=== PATIENT | male | born 1960 ===

== ENCOUNTER → 2024-08-27 08:14 | Outpatient (CLI) | payer OTHER, SELFPAY ==
[2024-08-27 08:57] LABS: Add Manual Diff / Slide Review NO; Hematocrit 48.7 % (41-53); Hemoglobin 16.1 g/dL (13.5-17.5); Lymphocytes Absolute Auto 1800 /uL (1100-4500); Mean Corpuscular HGB Conc 33.0 % (30-36); Mean Corpuscular Hemoglobin 28.3 PG (26-34); Mean Corpuscular Volume 85.8 fL (80-100); Platelet Count 153 X10^3/uL (150-400)
[2024-08-27 09:08] LABS: Hemoglobin A1C% w Est Avg Glu 12.6 % (4.0-6.0)
[2024-08-27 09:13] LABS: Alanine Aminotransferase 22 IU/L (<50); Albumin 4.2 g/dL (3.5-5.0); Albumin Globulin Ratio 1.2 (1.0-2.8); Alkaline Phosphatase 86 U/L (38-126); Blood Urea Nitrogen 16 mg/dL (9-20); Calcium 8.9 mg/dL (8.4-10.2); Carbon Dioxide 29 mmol/L (22-32); Chloride 98 mmol/L (98-107); Cholesterol 228 mg/dL (140-199); Estimated Glomerular Filt Rate > 60 mL/min (>60); Globulin 3.5 g/dL (1.7-4.1); Glucose 328 mg/dL (70-99); HDL Cholesterol 39 mg/dL (40-60); HEMOLYSIS < 15 (0-50); Potassium 4.5 mmol/L (3.4-5.1); Sodium 133 mmol/L (137-145); Total Protein 7.7 g/dL (6.3-8.2); Triglycerides 158 mg/dL (35-150)
== END ==
LOC: LAB 08:16
PROVIDERS: PCP Family Medicine; Referring Provider Family Medicine; Visit Provider Family Medicine
DX: E11.69 Type 2 diabetes mellitus with other specified complication (principal); E78.5 Hyperlipidemia, unspecified
CPT/HCPCS: 36415; 80053; 80061; 83036; 85025

== ENCOUNTER → 2024-11-23 08:46 | Outpatient (CLI) | payer OTHER, SELFPAY ==
--- NOTE | 2024-11-23 11:08 | DIAB.MNTFU ---
Follow-up Diabetes Medical Nutrition Therapy Assessment Name: Clifford Sauceda Date: 11/23/24 Time: 0-236e Dx: Type II Diabetes Provider: Tom Ed presents for Dm visit, accompanied by . Since last visit, started Ozempic. Has been increased with PCP to 1mg. Initial SE of diarrhea, weakness, and SOB reported x 3 days, but this has subsided. States his appetite has been reduced and intake during the day has lessened, however evening intake is high in CHO. Reports this may be more habit than hunger. Likes avocado lately with marciano. Has questions about whether this is ok to eat. Plans to go to [facility] for reunion. Wants to f/u in Dec. Diet recall: 8am: plum +/- egg and toast OR 2c oatmeal with PB milk and brown sugar 10a: plum or orange 4p: plum 6-7p: 3c goldberg's pie with potatoes OR 3-4c chicken soup with potatoes OR fish, 2c rice, veggies 8p: tea and crackers +/- 12-18 bagette with pb Reduced complication risk: Eyes: no Feet: yes Dental: no Anthropometrics: Ht: 6'2 Wt: 292# 10/2024 296# 08/2024 Weight history: Physical Activity: Not discussed today. Previous report: walking 1-2x per month with grandson. Has elliptical. Tried gym with daughter 2x but suffered cramps, likely r/t hyperglycemia. Self-Monitoring Blood Glucose: BG reduced with FBG now <200 but often >150mg/dl per report. None for review today. Reports 180-196mg/dl lately. Tried CGm sensor but did not like wearing it. [place] ache in the arm it was inserted in. 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 Diabetes Medications: 1000mg Metformin BID 1mg Semaglutide weekly Pertinent Labs: HgA1c; 12.6% 08/2024 Past Medical History: (Last Updated 10/07/24 @ 09:30 by Alexi Santos, DO) Diabetes Diabetic neuropathy Hyperlipidemia associated with type 2 diabetes mellitus Increased appetite Polyuria Postprandial abdominal bloating Nutrition Rx: Carbohydrates: Meal:45-60gSnack:15-30g Nutrition Diagnosis: - Excessive CHO intake r/t nutrition knowledge deficit aeb diet recall and new dx T2Dm- in progress - Self monitoring deficit r/t running out of strips and stage of change aeb pt report- improved - Physical inactivity r/t stage of change contemplative aeb pt report - not discussed today Intervention: This participant was very receptive. Provided appropriate educational handouts. Discussed the following topics: Meal/snack timing Portions at dinner and HS snack Impact of high CHo intake at night with FBG elevations Low CHO snacks and heart healthy fats/proteins GLP1 SE and action Created SMART goals for patient self-care and success. Goals: Limit exercise until BG lower <250mg/dl- not discussed Start GLP1- met Wear CGM- met Message RD for CGM rx start if interested- d/c Eat low CHO snacks if it has not been 3 hours since last eating occurrence- d/c Have 3pm snack with protein and/or healthy fat- new Keep half plate veggies at dinner- new Limit CHO to 1-1.5c at dinner- new Limit baguette to 6 for snack- new Follow-up: [facility] EUCEDA follow-up in Dec per pt req Cortney Parker RDN, [place] Certified Diabetes Care and Marine Water Tender P: [phone] Thank you for this referral
== END ==
LOC: DIET 08:47
PROVIDERS: PCP Family Medicine; Referring Provider Family Medicine
DX: E11.9 Type 2 diabetes mellitus without complications (principal); Z79.85 Long-term (current) use of injectable non-insulin antidiabetic drugs; Z79.84 Long term (current) use of oral hypoglycemic drugs; Z71.3 Dietary counseling and surveillance
CPT/HCPCS: 97803

== ENCOUNTER 2024-11-27 18:09 | Emergency (ER) | payer OTHER, SELFPAY ==
[2024-11-27 18:14] VITALS: BP 144/80; PULSE 94; RESP 15; TEMP 36.3; O2SAT 95; BMI 36.7
[2024-11-27] MEDS: ONDANSETRON 4 MG/2 ML INJ IV (18:31)
[2024-11-27 18:42] LABS: Add Manual Diff / Slide Review NO; Hematocrit 46.1 % (41-53); Hemoglobin 15.8 g/dL (13.5-17.5); Lymphocytes Absolute Auto 1000 /uL (1100-4500); Mean Corpuscular HGB Conc 34.2 % (30-36); Mean Corpuscular Hemoglobin 28.6 PG (26-34); Mean Corpuscular Volume 83.4 fL (80-100); Platelet Count 171 X10^3/uL (150-400)
[2024-11-27 18:46] LABS: Alanine Aminotransferase 27 IU/L (<50); Albumin 4.8 g/dL (3.5-5.0); Albumin Globulin Ratio 1.3 (1.0-2.8); Alkaline Phosphatase 82 U/L (38-126); Blood Urea Nitrogen 17 mg/dL (9-20); Calcium 9.3 mg/dL (8.4-10.2); Carbon Dioxide 22 mmol/L (22-32); Chloride 103 mmol/L (98-107); Estimated Glomerular Filt Rate > 60 mL/min (>60); Globulin 3.7 g/dL (1.7-4.1); Glucose 237 mg/dL (70-99); HEMOLYSIS < 15 (0-50); Lipase 119 U/L (23-300); Potassium 4.3 mmol/L (3.4-5.1); Sodium 136 mmol/L (137-145); Total Protein 8.5 g/dL (6.3-8.2)
--- NOTE | 2024-11-27 19:29 | DI.CT.S_ITS ---
PROCEDURE: CT ABDOMEN PELVIS WO CON INDICATIONS: flank pain with blood in urine TECHNIQUE: CT of the abdomen and pelvis was obtained without intravenous contrast. Coronal and sagittal reformats were performed. For radiation dose reduction, the following was used: automated exposure control, adjustment of mA and/or kV according to patient size. COMPARISON: None. FINDINGS: Image quality: Diagnostic. Lower Chest: No significant findings. ABDOMEN: Liver: No contour-deforming mass. Gallbladder: No radiopaque gallstones or wall thickening. Biliary ducts: No biliary dilation. Pancreas: No ductal dilation. Spleen: Size is within normal limits. Adrenal Glands: No adrenal nodules. Kidneys and Ureters: No right hydronephrosis or nephrolithiasis. Mild left proximal hydroureter secondary to a 5 mm partially obstructive calculus in the left mid ureter (Hounsfield units of 639) (2/). Mild bilateral nonspecific perinephric fat stranding. Stomach and Bowel: Normal colonic caliber, without significant wall thickening. Normal appendix. Peritoneum: No abnormal intraperitoneal fluid. No free air. Ventral Wall: No significant hernia. Abdominal Nodes: No retroperitoneal or mesenteric adenopathy by size criteria. Vessels: Aorta and inferior vena cava are normal in size. PELVIS: Pelvic Organs: Unremarkable. Bladder: Unremarkable. Pelvic Nodes: No enlarged lymph nodes. Miscellaneous: No inguinal hernias are seen. Bones: No aggressive osseous abnormality. Mild grade 1, stepwise retrolisthesis of L3 on L4 and L4 on L5. Moderate degenerated disc at L2-3. IMPRESSION: Left mid ureter partially obstructive 5 mm stone. Dictated by: Bryant Wynn M.D. on 11/27/2024 at 20:07 Approved by: Bryant Wynn M.D. on 11/27/2024 at 20:13
[2024-11-27] MEDS: KETOROLAC 30 MG/ML VIAL 15 MG IV (19:34)
[2024-11-27 21:29] VITALS: BP 116/65; PULSE 81; O2SAT 97
[2024-11-28 00:17] VITALS: BP 113/76; PULSE 73; RESP 16; O2SAT 95
--- NOTE | 2024-11-28 00:21 | ED.ABDPAIN ---
HPI - Abdominal Pain General Chief Complaint: Abdominal Pain Stated Complaint: Sharp Pain L Side Migrating Upward, Vomiting Time Seen by Provider: 11/28/24 00:09 Source: patient and family Mode of arrival: Ambulatory History of Present Illness HPI narrative: 64-year-old male without known history of prior kidney stones, history of diabetes, complains of left flank and left mid lower quadrant abdominal pain since 2:00 p.m. yesterday. Had nausea earlier, with nonbloody emesis. No diarrhea. No history of colitis or diverticulitis. No injuries, trauma, new activities. No painful or frequent urination. Related Data Previous Rx's ?Medication ?Instructions ?Recorded atorvastatin 40 mg tablet 40 mg PO BEDTIME #90 tabs 08/30/24 metformin 500 mg tablet 1,000 mg (2 x 500 mg) PO BID #360 08/30/24 tabs blood sugar diagnostic (Blood #50 ea 10/14/24 Glucose Test strips) lancets #200 ea 11/08/24 semaglutide 1 mg/dose (4 mg/3 mL) 1 mg (0.75 mL) SUBCUT QWEEK #3 mL 11/08/24 subcutaneous pen injector hydrocodone 5 mg-acetaminophen 325 1 tab PO Q6H PRN pain #14 tabs 11/28/24 mg tablet tamsulosin 0.4 mg capsule 0.4 mg PO DAILY #30 caps 11/28/24 Allergies Allergy/AdvReac Type Severity Reaction Status Date / Time No Known Drug Allergies Allergy Unverified 11/08/24 11:39 Patient History Medical History (Updated 11/28/24 @ 00:55 by Yuri Mock MD) Trigger finger of left hand Increased appetite Postprandial abdominal bloating Polyuria Diabetic neuropathy Hyperlipidemia associated with type 2 diabetes mellitus Diabetes Social History Smoking Status: Never smoker Smoking Status: Never smoker Exam Narrative Exam Narrative: GENERAL: Well-developed patient, in mild distress. HEAD: Atraumatic. Normocephalic. EYES: Pupils equal round and reactive. Extraocular motions intact. No scleral icterus. No injection or drainage. ENT: Nose without bleeding, purulent drainage. Throat without erythema, tonsillar hypertrophy or exudate. Airway patent. NECK: Trachea midline. Non tender CARDIOVASCULAR: Regular rate and rhythm without murmurs, gallops, or rubs. RESPIRATORY: Clear to auscultation. Breath sounds equal bilaterally. No wheezes, rales, or rhonchi. GASTROINTESTINAL: Abdomen soft, non-tender, nondistended. EXTREMITIES: No edema or joint tenderness. BACK: Nontender without deformity or crepitance. No flank tenderness. NEURO: AOx3. Motor functions grossly nonfocal. SKIN: No rash or erythema of visible areas Initial Vital Signs Initial Vital Signs: Vital Signs Temperature 97.4 F L 11/27/24 18:14 Pulse Rate 94 H 11/27/24 18:14 Respiratory Rate 15 11/27/24 18:14 Blood Pressure 144/80 H 11/27/24 18:14 Pulse Oximetry 95 11/27/24 18:14 Oxygen Delivery Method Room Air 11/27/24 18:14 Course Orders Ordered: Discontinued Medications Hydrocodone Bitart/Acetaminophen (Hydrocodone/Acet 5/325 Prepack) 1 bottle MISC DIRECTED ONE Stop: 11/28/24 00:39 Last Admin: 11/28/24 00:56 Dose: 1 bottle Documented By: AB Ketorolac Tromethamine (Ketorolac 30 Mg/Ml Vial) 15 mg IV NOW ONE Stop: 11/27/24 19:30 Last Admin: 11/27/24 19:34 Dose: 15 mg Documented By: GEORGETTE Ondansetron HCl (Ondansetron 4 Mg/2 Ml Inj) 4 mg IV NOW PRN PRN Reason: Nausea And Vomiting Last Admin: 11/27/24 18:31 Dose: 4 mg Documented By: ES Ondansetron HCl (Ondansetron 4 Mg Odt) 4 mg PO NOW PRN PRN Reason: Nausea And Vomiting Ondansetron HCl (Ondansetron 4 Mg Odt Prepack) 1 bottle MISC DIRECTED ONE Stop: 11/28/24 00:39 Last Admin: 11/28/24 00:56 Dose: 1 bottle Documented By: AB Vital Signs Vital signs: Vital Signs - 8 hr 11/28/24 00:17 11/28/24 00:17 Pulse Rate 73 Respiratory Rate 16 Blood Pressure 113/76 Pulse Oximetry 95 MDM - Abdominal Pain Lab Data Attestation: I reviewed the patient's lab results. Lab results narrative: White blood cell count 8800, hemoglobin 15.8, platelets adequate. Glucose 237. Renal function, serum CO2, potassium normal. Sodium 136 slight low. Liver functions and lipase normal. Urinalysis shows hematuria, without bacteriuria. 10/05/25 18:28 11/27/24 18:28 Labs: Lab Results 11/27/24 11/27/24 Range/Units 18:28 18:37 WBC 8.8 (4.5-11.0) X10^3/uL RBC 5.53 (4.5-5.9) X10^6/uL Hgb 15.8 (13.5-17.5) g/dL Hct 46.1 (41-53) % MCV 83.4 (80-100) fL MCH 28.6 (26-34) PG MCHC 34.2 (30-36) % RDW 14.2 (11.6-14.8) % Plt Count 171 (150-400) X10^3/uL Neut % (Auto) 80.6 H (50-75) % Lymph % (Auto) 11.1 L (25-40) % Davidson % (Auto) 6.6 (3-14) % Eos % (Auto) 1.4 L (2-4) % Baso % (Auto) 0.3 (0-2) % Neut # (Auto) 7100 H (5115-7263) /uL Lymph # (Auto) 1000 L (3760-3327) /uL Davidson # (Auto) 600 (0-900) /uL Eos # (Auto) 100 (0-450) /uL Baso # (Auto) 0 (0-100) /uL Sodium 136 L (137-145) mmol/L Potassium 4.3 (3.4-5.1) mmol/L Chloride 103 (98-107) mmol/L Carbon Dioxide 22 (22-32) mmol/L BUN 17 (9-20) mg/dL Creatinine 1.04 (0.66-1.25) mg/dL Estimated GFR > 60 (>60) mL/min BUN/Creatinine Ratio 16.3 (6-22) Glucose 237 H (70-99) mg/dL Calcium 9.3 (8.4-10.2) mg/dL Total Bilirubin 1.3 (0.2-1.3) mg/dL AST 29 (17-59) IU/L ALT 27 (<50) IU/L Alkaline Phosphatase 82 (38-126) U/L Total Protein 8.5 H (6.3-8.2) g/dL Albumin 4.8 (3.5-5.0) g/dL Globulin 3.7 (1.7-4.1) g/dL Albumin/Globulin Ratio 1.3 (1.0-2.8) Lipase 119 (23-300) U/L Urine RBC 10-30/hpf H (0-5/HPF) Urine WBC None seen (0-5/HPF) Ur Squamous Epith Cells None seen (0-5/HPF) Urine Bacteria None seen (None) Vol Urine Centrifuged 10ml (spun) Point of care testing: Urine Dip Bedside Urine Glucose 500 mg/dl Bedside Urine Bilirubin - Negative Bedside Urine Ketone - Negative Urine Specific [place] 1.015 Bedside Urine Occult Blood +++ Bedside Urine pH 6.0 Bedside Urine Protein +/- 15 Bedside Urine Urobilinogen +/- 1mg Bedside Urine Nitrite - Negative Bedside Urine Leukocytes - Negative Esterase Imaging Data CT scan - abdomen/pelvis: Radiologist's Impression: [address] [address] [address] Scan Report Signed Patient: Clifford Sauceda MR#: [id number] : 1960 Acct:[id number] Age/Sex: 64 / M Date of Service: 11/27/24 Loc: ED Accession Number: [id number] Procedure: CT abdomen pelvis wo con Ordering Provider: Yuri Mock MD PROCEDURE: CT ABDOMEN PELVIS WO CON INDICATIONS: flank pain with blood in urine TECHNIQUE: CT of the abdomen and pelvis was obtained without intravenous contrast. Coronal and sagittal reformats were performed. For radiation dose reduction, the following was used: automated exposure control, adjustment of mA and/or kV according to patient size. COMPARISON: None. FINDINGS: Image quality: Diagnostic. Lower Chest: No significant findings. ABDOMEN: Liver: No contour-deforming mass. Gallbladder: No radiopaque gallstones or wall thickening. Biliary ducts: No biliary dilation. Pancreas: No ductal dilation. Spleen: Size is within normal limits. Adrenal Glands: No adrenal nodules. Kidneys and Ureters: No right hydronephrosis or nephrolithiasis. Mild left proximal hydroureter secondary to a 5 mm partially obstructive calculus in the left mid ureter (Hounsfield units of 639) (2/). Mild bilateral nonspecific perinephric fat stranding. Stomach and Bowel: Normal colonic caliber, without significant wall thickening. Normal appendix. Peritoneum: No abnormal intraperitoneal fluid. No free air. Ventral Wall: No significant hernia. Abdominal Nodes: No retroperitoneal or mesenteric adenopathy by size criteria. Vessels: Aorta and inferior vena cava are normal in size. PELVIS: Pelvic Organs: Unremarkable. Bladder: Unremarkable. Pelvic Nodes: No enlarged lymph nodes. Miscellaneous: No inguinal hernias are seen. Bones: No aggressive osseous abnormality. Mild grade 1, stepwise retrolisthesis of L3 on L4 and L4 on L5. Moderate degenerated disc at L2-3. IMPRESSION: Left mid ureter partially obstructive 5 mm stone. Dictated by: Bryant Wynn M.D. on 11/27/2024 at 20:07 Approved by: Bryant Wynn M.D. on 11/27/2024 at 20:13 MDM Narrative Medical decision making narrative: 64-year-old male with nontraumatic left flank pain, diabetic, no history of known stones. Afebrile, sirs screen negative. No tenderness anterior abdominal pain or flank. DDx consider left ureteral stone, colitis, diverticulitis, pancreatitis, bowel obstruction, perforated viscus, musculoskeletal, other. Labs pending. IV Toradol given. Lab data: White blood cell count 8800, hemoglobin 15.8, platelets adequate. Glucose 237. Renal function, serum CO2, potassium normal. Sodium 136 slight low. Liver functions and lipase normal. Urinalysis shows hematuria, without bacteriuria. CT abdomen and pelvis, shows 5 mm diameter mid left ureteral stone, partially obstructing. See radiology report. Pain seemed improved after IV Toradol given. Had vomiting prior. We will give homepack ODT ondansetron, home pack hydrocodone/APAP if needed. Consider [id number] ibuprofen. Follow up with Urology, clinical contact information provided for office of Dr. De La O. Discharge Plan Departure Patient Disposition: Home Clinical Impression: Calculus of left ureter Instructions: DI for Kidney Stones Activity Restrictions/Additional Instructions: Left-sided nontraumatic flank and abdominal pain. CT scanning showed presence of 5 mm diameter stone within the left ureter, between the left kidney and the bladder. Urinalysis without obvious infection, no antibiotics indicated at this time. Hopefully you will be able to pass this stone without surgical interventions by a urologist. Contact information given for local urologist Dr. Caro provided, can call their office for follow up later this morning during regular hours. Symptoms seemed to be improved with IV Toradol. Consider trial of tamsulosin to see if that might help expel the stone more efficiently. Consider use of [id number] ibuprofen. Home pack of Zofran to use if needed for control of nausea and vomiting. Home pack of hydrocodone/acetaminophen to help control pain if needed. Follow up with your regular doctor later this week to reassess symptoms. Return earlier for any change worsening symptoms or any concerns prior. Prescriptions: New tamsulosin 0.4 mg capsule 0.4 mg PO DAILY Qty: 30 0RF hydrocodone-acetaminophen 5-325 mg tablet 1 tab PO Q6H PRN (Reason: pain) Qty: 14 0RF No Action (DME) Blood Glucose Test Strip See Rx Instructions .Route Qty: 50 3RF Rx Instructions: Use to check blood sugar 1-2 times a day atorvastatin 40 mg tablet 40 mg PO BEDTIME Qty: 90 3RF metformin 500 mg tablet 1,000 mg PO BID Qty: 360 3RF Rx Instructions: take 2 tabs a.m. and 1 tab p.m. for a week, then increase to 2 tabs twice daily semaglutide 1 mg/dose (4 mg/3 mL) pen injector 1 mg SUBCUT QWEEK Qty: 3 2RF (DME) lancets Misc See Rx Instructions .Route Qty: 200 12RF Rx Instructions: ReliOn brand use to check blood sugar 1-2 times a day Referrals: Michael De La O DO [Physician, Urology] Alexi Santos DO [Primary Care Provider, Family Practice] Stand Alone Forms: Patient Portal/API
[2024-11-28] MEDS: ONDANSETRON 4 MG ODT PREPACK 1 BOTTLE MISC (00:56)
== END 2024-11-28 01:09 | disposition home or self-care (01) ==
PROVIDERS: Emergency Provider Emergency Medicine; PCP Family Medicine
DX: N20.1 Calculus of ureter (principal); R31.9 Hematuria, unspecified; R11.2 Nausea with vomiting, unspecified; Z87.442 Personal history of urinary calculi
CPT/HCPCS: 74176; 80053; 81003; 81015; 83690; 85025; 96374; 96375; 99283; 99284; J1885; J2405